=== PATIENT | female | born 1980 | race African-American/Black ===

== ENCOUNTER 2017-11-17 11:00 | Emergency (ER) | payer OTHER, SELFPAY ==
[2017-11-17] MEDS ORDERED: Acetaminophen 500 MG TAB ONE (11:28)
== END 2017-11-17 11:35 | disposition home or self-care (01) ==
LOC: NAV ERS 11:00
DX: B34.9 Viral infection, unspecified (principal)
CPT/HCPCS: 99282

== ENCOUNTER 2023-12-08 15:11 | Emergency (ER) | payer OTHER, SELFPAY ==
[2023-12-08] MEDS ORDERED: Metoclopramide HCl 10 MG (2 mL) VIAL ONE (15:38)
[2023-12-08] MEDS ORDERED: Ketorolac Tromethamine 30 MG (1 mL) VIAL ONE (15:38)
== END 2023-12-08 17:15 | disposition home or self-care (01) ==
LOC: NAV ERS 15:11
DX: B34.9 Viral infection, unspecified (principal); G44.209 Tension-type headache, unspecified, not intractable
CPT/HCPCS: 87804; 96365; 96375; J1885; J2765

== ENCOUNTER 2024-03-09 20:06 | Emergency (ER) | payer BC ==
[~2024-03-09 20:06] MED LIST: Iopamidol 370 76% 100 ML VIAL ONE
[2024-03-09] MEDS ORDERED: Acetaminophen 325 MG TAB ONE (20:52)
[2024-03-09] MEDS ORDERED: Ondansetron PF 4 MG/2 ML Vial ONE (20:53)
[2024-03-09] MEDS ORDERED: Morphine 4 MG/ML VIAL ONE (20:53)
[2024-03-09] MEDS ORDERED: Sodium Chloride 0.9% 1,000 ML ONE (20:53)
[2024-03-09 21:08] LABS: #Lymphocytes 0.4 thou/uL (1.20-3.40); #Monocytes 0.2 thou/uL (0.11-0.59); #Neutrophils 11.4 thou/uL (1.40-6.50); %Basophils 0.3 % (0.0-1.0); %Eosinophils 0.1 % (0.0-10.0); %Lymphocytes 3.1 % (21.0-51.0); %Neutrophils 94.6 % (42.0-75.0); Hematocrit 43.3 % (36.0-47.0); Hemoglobin 13.6 g/dL (12.0-16.0); Mean Corpuscular HGB CONC 31.4 g/dL (32.0-36.0); Mean Corpuscular Hemoglobin 27.1 pg (27.0-31.0); Mean Corpuscular Volume 86.3 fl (78.0-98.0); Platelet Count 327 10x3/uL (130-400); RBC Distribution Width 13.7 % (11.5-14.5); Red Blood Cell (RBC) Count 5.02 mill/uL (4.20-5.40)
[2024-03-09] MEDS ORDERED: Acetaminophen 325 MG Suppository ONE (21:12)
[2024-03-09 21:24] LABS: ALT (SGPT) 15 U/L (8-55); AST (SGOT) 17 U/L (5-34); Albumin 4.6 g/dL (3.5-5.0); Alkaline Phosphatase 110 U/L (40-110); Anion Gap 18 mmol/L (10-20); BUN (Urea Nitrogen) 11 mg/dL (7.0-18.7); Bilirubin, Total 0.7 mg/dL (0.2-1.2); Calc. Creatinine Clearance 0 mL/min (70-130); Calcium 9.6 mg/dL (7.8-10.44); Carbon Dioxide 21 mmol/L (22-29); Chloride 105 mmol/L (98-107); Estimated GFR 81; Globulin 3.8 g/dL (2.4-3.5); Glucose 122 mg/dL (70-105); Lipase 14 U/L (8-78); Potassium 3.7 mmol/L (3.5-5.1); Protein, Total 8.4 g/dL (6.0-8.3); Sodium 140 mmol/L (136-145)
[2024-03-09 21:30] LABS: Bilirubin Negative (Negative); Blood, Urine Trace (Negative); Clarity Clear (Clear); Glucose, Urine (Dipstick) Negative (Negative); Ketone, Urine Negative (Negative); Leukocyte Negative (Negative); Nitrite Negative (Negative); Protein, Urine (Dipstick) Trace mg/dL (Neg-Trace); Urobilinogen 0.2 mg/dL (Less than 2); pH, Urine 5.5 (5.0-9.0)
[2024-03-09 21:31] LABS: Specific Gravity, Urine 1.026 (1.002-1.036)
[2024-03-09 21:34] LABS: Bacteria/HPF Rare-Few HPF (None Seen); CAUTI Indications for Culture Pelvic or flank pain; RBC/HPF 0-3 HPF (0-3); Urine Culture Reflex No No; WBC/HPF 0-3 HPF (0-3)
[2024-03-10] MEDS ORDERED: LevoFLOXacin 750 mg/D5W 150 ml Premix Bag ONE (00:40)
== END 2024-03-10 02:38 | disposition home or self-care (01) ==
LOC: NAV ERS 20:06
DX: K52.9 Noninfective gastroenteritis and colitis, unspecified (principal); R00.0 Tachycardia, unspecified
CPT/HCPCS: 74177; 80053; 81001; 83690; 85025; 96361; 96365; 96366; 96375; J1956; J2270; J2405; J7050

== ENCOUNTER 2024-03-10 17:38 | Emergency (ER) | payer BC ==
[2024-03-10] MEDS ORDERED: Naproxen 500 MG TAB ONE (18:10)
== END 2024-03-10 18:14 | disposition home or self-care (01) ==
LOC: NAV ERS 17:38
DX: K52.9 Noninfective gastroenteritis and colitis, unspecified (principal); R51.9 Headache, unspecified
CPT/HCPCS: 74177; 80053; 81001; 83690; 85025; 96361; 96365; 96366; 96375; 99283; J1956; J2270; J2405; J7050; Q9967